=== PATIENT | male | born 1935 | race Caucasian/White ===

== ENCOUNTER 2016-08-13 21:58 | Emergency (ER) | payer MEDICARE, OTHER ==
[2016-08-13] MEDS ORDERED: IBUPROFEN 600 MG TABLET ONE (23:57)
[2016-08-13] MEDS ORDERED: AMOXICILLIN TRIHYDRATE 250 MG CAPSULE ONE (23:58)
[2016-08-13] MEDS ORDERED: DOXYCYCLINE HYCLATE 100 MG TABLET ONE (23:58)
--- NOTE | 2016-08-14 08:33 | RAD ---
HISTORY: nail gun injury to second digit. Initial encounter. COMPARISON: None TECHNIQUE: Three views of the left hand FINDINGS: Bones: No fracture or dislocation. Joints: Severe DIP and PIP joint space loss. Moderate MCP joint space loss. Soft tissue: Normal. IMPRESSION: No fracture or dislocation. Degenerative changes as above.
== END 2016-08-14 01:11 | disposition home or self-care (01) ==
LOC: ED 21:58
DX: S61.231A Puncture wound without foreign body of left index finger without damage to nail, initial encounter (principal); I10 Essential (primary) hypertension; E11.9 Type 2 diabetes mellitus without complications; W29.4XXA Contact with nail gun, initial encounter; Y93.9 Activity, unspecified; Y92.9 Unspecified place or not applicable
CPT/HCPCS: 73130; 99283 ×2; 29130; A9270 ×3